=== PATIENT | male | born 1975 | race American Indian/Alaskan Native ===

== ENCOUNTER 2017-09-16 03:23 | Emergency (ER) | payer SELFPAY ==
[2017-09-16 03:34] VITALS: BP 137/91
--- NOTE | 2017-09-16 07:38 | Emergency Department Report ---
Abscess Boil HPI - HPI Chief Complaint: Skin/Abscess/Foreign Body Stated Complaint: ALLERGIC REACTION Duration: 3 Days Location: Other (right nare) Severity: Severe History: Yes Pain (nose), No Fever, No Numbness, No Foreign Body, No Previous History, No Insect Bite HPI: 41-year-old -[place] male comes stating that he woke up yesterday morning with the bump inside his right nostril states it was worsened since then and his nose is sore lip and mouth feels tight. Patient denies any tongue swelling no throat swelling. He denies any issues with breathing. Denies any fever chills nausea vomiting. He has a past medical history borderline diabetes and borderline hypertension. Patient currently takes no medications has no known drug allergies. He does not have a primary care provider. Home Medications: Previous Rx's Medication Instructions Recorded Last Taken Type Bacitracin 3.5 gm OP BID 10 Days #15 oint...g. 09/16/17 Unknown Rx Sulfamethoxazole/Trimethoprim 1 each PO BID #20 tablet 09/16/17 Unknown Rx [Bactrim Ds Tablet] Allergies/Adverse Reactions: Allergies Allergy/AdvReac Type Severity Reaction Status Date / Time shellfish derived Allergy Hives Verified 09/16/17 04:08 ED Review of Systems ROS: Stated complaint: ALLERGIC REACTION Other details as noted in HPI Constitutional: denies: chills, fever Eyes: denies: eye pain, eye discharge, vision change ENT: other (bump in the left nostril). denies: ear pain, throat pain Respiratory: denies: cough, shortness of breath, wheezing Cardiovascular: denies: chest pain, palpitations Endocrine: no symptoms reported Gastrointestinal: denies: abdominal pain, nausea, diarrhea Genitourinary: denies: urgency, dysuria Musculoskeletal: denies: back pain, joint swelling, arthralgia Skin: denies: rash, lesions Neurological: denies: headache, weakness, paresthesias Psychiatric: denies: anxiety, depression Hematological/Lymphatic: denies: easy bleeding, easy bruising ED Past Medical Hx - Past Medical History Previous Medical History?: Yes Hx Hypertension: Yes (Borderline) - Surgical History Past Surgical History?: No - Social History Smoking Status: Current Every Day Smoker - Medications Home Medications: Home Medications Medication Instructions Recorded Confirmed Last Taken Type Bacitracin 3.5 gm OP BID 10 Days #15 oint...g. 09/16/17 Unknown Rx Sulfamethoxazole/Trimethoprim 1 each PO BID #20 tablet 09/16/17 Unknown Rx [Bactrim Ds Tablet] ED Abscess Boil Physical Exam - Exam General: Vital signs noted. No distress. Alert and acting appropriately. Size: 1 cm Exam: Yes Tenderness, Yes Surrounding Cellulites/Erythema, Yes Normal Neurologic Exam, Yes Normal Circulation, No Fluctuance, No Lymphangitis, No Crepitation, No Heart Murmur Exam: Tender bump right near with surrounding swelling non-erythematous. No discharge appreciated. Swelling of the lip and right cheek. ED Course Vital Signs 09/16/17 09/16/17 03:31 04:11 Temperature 98.5 F 98.5 F Pulse Rate 99 H 95 H Respiratory 18 18 Rate Blood Pressure 137/91 137/91 O2 Sat by Pulse 95 98 Oximetry Critical care attestation.: If time is entered above; I have spent that time in minutes in the direct care of this critically ill patient, excluding procedure time. ED Medical Decision Making - Medical Decision Making Patient has been evaluated by this provider fast track. Patient drove she is not able to get any Benadryl at this time. Discussed outpatient place him on Bactrim and use bacitracin ointment to both of his naris to help with the infection. Discussed with patient that it is important for him to follow up with her primary care provider I will refer him to [facility] for further evaluation. Patient verbalized understanding. ED Disposition Clinical Impression: Cellulitis of nasal tip Disposition: DC-01 TO HOME OR SELFCARE Is pt being admited?: No Does the pt Need Aspirin: No Condition: Stable Instructions: Cellulitis (ED) Additional Instructions: Please take antibiotics as prescribed. He can take Benadryl that would help with the swelling. You need to follow up with her provider within 3-5 days for further evaluation to see if that's improving. Please return back to the emergency room if symptoms persist or gets worse. Prescriptions: Bacitracin 3.5 gm OP BID 10 Days #15 oint...g. Sulfamethoxazole/Trimethoprim [Bactrim Ds Tablet] 1 each PO BID #20 tablet Referrals: LEW DICKSON MD [Primary Care Provider] - 3-5 Days Forms: Work/School Release Form(ED)
== END 2017-09-16 08:38 | disposition home or self-care (01) ==
LOC: ED 03:23
DX: J34.0 Abscess, furuncle and carbuncle of nose (principal); F17.200 Nicotine dependence, unspecified, uncomplicated; Z91.013 Allergy to seafood
CPT/HCPCS: 87076; 87116; 87186; 99282